=== PATIENT | male | born 1955 | race Caucasian/White ===

== ENCOUNTER 2022-10-19 09:08 | Outpatient (CLI) | payer BC, SELFPAY ==
--- NOTE | 2022-10-19 09:15 | MR_ITS ---
[address] [address] Phone:?[phone] Fax:?[phone] Referring Physician Information: Torey Moore M.D. [address] [facility] [address] Phone:?[phone] Fax:?[phone] Patient:Rony Schwartz D.O.B:?1955 Sex:?Male Phone:?[phone] [facility] MRN:?[id number] Exam Date:?10/19/2022 EXAM: MRI of the RIGHT SHOULDER, without contrast CLINICAL HISTORY: Right shoulder pain. Concern for rotator cuff tear. Unspecified injury of the right shoulder. COMPARISONS: Plain radiographs 10/12/2022. MRI 08/09/2021. TECHNICAL: MRI sequences of the right shoulder: Axials: PD, T2 Coronals: PD, STIR, T2 Sagittals: PD, T2 SEDATION: None CONTRAST: None FINDINGS: Bones: No fracture or suspicious bone marrow signal abnormality. Coracoacromial arch: Acromion: No os acromiale. Type I-II acromion. Acromiohumeral space: Narrowed in the setting of complete full-thickness tears of the supraspinatus and infraspinatus tendons. Coracohumeral space: The bony distance is unremarkable. Acromioclavicular joint: Mild degenerative changes. Coracoclavicular ligament: The coracoclavicular ligament is intact. Rotator cuff muscles/tendons: Supraspinatus and infraspinatus: Complete full-thickness tears of the supraspinatus and infraspinatus tendon insertions with proximal/medial tendon retraction to the level of the glenoid, moderate atrophy of the supraspinatus muscle, and moderate atrophy of the infraspinatus muscle, new compared to previous MRI 08/09/2021. Teres minor: The teres minor tendon and muscle are intact. Subscapularis: 2.2 cm in craniocaudad dimension full-thickness tear of the subscapularis tendon insertion with proximal/medial tendon retraction medial to the level of the glenoid and mild atrophy of the subscapularis muscle, new compared to previous MRI 08/09/2021. Labrum and glenohumeral joint: There is fraying of the superior, posterosuperior, and anteroinferior portions of the labrum. Small glenohumeral joint effusion. There is mild inferomedial humeral head osteophytosis. No convincing evidence of capsular edema or thickening although evaluation is suboptimal because of lack of joint distention. Proximal biceps tendon, long head and short heads: Rupture of the proximal long head of the biceps tendon with distal tendon retraction distal to the bicipital groove, new compared to previous MRI 08/09/2021. Bursae: Subacromial/subdeltoid: The presence of fluid is not expected given full- thickness rotator cuff tendon tearing. Subcoracoid: No convincing subcoracoid bursal thickening/bursitis. IMPRESSION: 1. Complete full-thickness tears of the supraspinatus and infraspinatus tendon insertions with proximal/medial tendon retraction to the level of the glenoid and moderate atrophy of the supraspinatus and infraspinatus muscles. 2. Rupture of the proximal long head of the biceps tendon with distal tendon retraction distal to the bicipital groove. 3. 2.2 cm in craniocaudad dimension full-thickness tear of the subscapularis tendon insertion with proximal/medial tendon retraction medial to the level of the glenoid. Mild atrophy of the subscapularis muscle. 4. Mild inferomedial humeral head osteophytosis. 5. Small glenohumeral joint effusion. RCB Electronically signed on 10/19/2022 9:43:00 PM by Jose Carr M.D.
== END 2022-10-19 09:09 | disposition home or self-care (01) ==
PROVIDERS: PCP Family Medicine; Visit Provider Orthopaedic Surgery
DX: M25.511 Pain in right shoulder (principal); S49.91XA Unspecified injury of right shoulder and upper arm, initial encounter; M75.101 Unspecified rotator cuff tear or rupture of right shoulder, not specified as traumatic; M25.711 Osteophyte, right shoulder; M25.411 Effusion, right shoulder
CPT/HCPCS: 73221

== ENCOUNTER 2022-11-05 06:02 | Day surgery (SDC) | payer BC, SELFPAY ==
[2022-11-05] VITALS (12 sets, daily range): BP systolic 116–149; BP diastolic 76–87; PULSE 64–757; RESP 16–161; TEMP 36.3–36.7; O2SAT 93–99; BMI 27.7
[2022-11-05] MEDS: SODIUM CHLORIDE 0.9 % (FLUSH) 10 ML SYRINGE IVF (06:49)
[2022-11-05] MEDS: LACTATED RINGERS 1000 ML 1,000 ML 100 ML IV ×2 (06:50→10:08)
--- NOTE | 2022-11-05 07:18 | W.PM.H&PU ---
History & Physical Update History & Physical Update H&P Reviewed and patient assessed: No changes noted
[2022-11-05] MEDS: MIDAZOLAM HCL 1 MG/ML inj IVP (07:20)
[2022-11-05] MEDS: fentaNYL 100 MCG/2 ML inj IVP (07:20)
--- NOTE | 2022-11-05 07:24 | SUR.PREOP ---
TIME?OUT:?716, right shoulder PT/RN/MDA?VERIFICATION?OF?SURGICAL?SITE,?PROCEDURE,?AND?CONSENT OBTAINED?PRIOR?TO?INVASIVE?PROCEDURE.
[2022-11-05] MEDS: CEFAZOLIN 2 GM INJ IVP (07:46)
--- NOTE | 2022-11-05 07:59 | P.NB_ITS ---
Nerve Block Nerve Block Time Seen by Provider: 07:15 Date Seen: 11/05/22 Type of block requested by surgeon for post-operative analgesia: supraclavicular Side: right Time out performed: Yes Verification of patient name: Yes Verification of date of : Yes Site marking: site marked Name of person performing procedure: denys Continuous monitoring Was continuous monitoring of O2 sat, B/P, cardiac cath technician, recorded every 15 minutes?: Yes Procedure Checklist: sterile prep, needles and gloves Ultrasound guided. Images saved: Yes Medications given in 5ml increments after negative aspiration: Ropivicaine %: 0.5 mL: 20 Needle gauge: 20 Decadron (mg): 10 Precedex (mcg): 25 Patient tolerated procedure well: Yes Block Charges Block Charge (with Pro Fee): Brachial Plexus Use of Ultrasound Machine for Block: Yes- US Guidance/pain block
[2022-11-05] MEDS: EPINEPHrine 1 MG in SODIUM CHLORIDE IRRIG SOLUTION 3,000 ML 3001 MG IRRIGATION ×23 (08:08→12:03)
[2022-11-05] MEDS: EPINEPHrine 1 MG in SODIUM CHLORIDE IRRIG SOLUTION 3,000 ML 9003 MG IRRIGATION (09:20)
--- NOTE | 2022-11-05 12:10 | W.ANESCHARGE ---
Anesthesia Charges Start Date/Time Anesthesia Start Date: 11/05/22 Anesthesia Start Time: 07:29 Stop Date/Time Anesthesia Stop Date: 11/05/22 Anesthesia Stop Time: 12:36
--- NOTE | 2022-11-05 12:18 | PM.ORPRC ---
Procedure Note Date of procedure: 11/05/22 Procedure: Date of procedure: 11/05/22 Procedure: PREOPERATIVE DIAGNOSES: 1. Right shoulder rotator massive cuff tear (subscapularis, supraspinatus, infraspinatus). 2. Right long head biceps tendon rupture POSTOPERATIVE DIAGNOSES: 1. Right shoulder rotator massive cuff tear (subscapularis, supraspinatus, infraspinatus). 2. Right long head biceps tendon rupture 3. Right shoulder subacromial bursitis 4. Right shoulder glenohumeral chondromalacia NAME OF OPERATION: 1. Right shoulder arthroscopic rotator cuff repair. 2. Right shoulder arthroscopic extensive debridement - glenohumeral joint, glenoid labrum, subacromial space 3. Right shoulder subacromial decompression 4. 22 Modifier due to increased technical difficulty of procedure secondary to massive, retracted rotator cuff tear with significant subacromial bursitis. SURGEON: Andre Moore MD MARKET REPORTER: Ayala Knox P.A.-C. An medical assistant internal medicine was critical for this case to aide in patient positioning, suture manipulation, arm positioning, instrument positioning, and closure. ANESTHESIA: General plus preoperative supraclavicular block. IMPLANTS: Arthrex 4.75 mm BioComposite knotless SwiveLock anchors x2, Arthrex 5.5 mm BioComposite knotless SwiveLock anchor x1, Arthrex 2.6 mm FiberTak anchor x1, 4.75 mm BioComposite SwiveLock anchors x3, ESTIMATED BLOOD LOSS: 25 mL COMPLICATIONS: None evident INDICATIONS: The patient is a pleasant, 67-year-old male with history of chronic right shoulder pain and weakness. Physical exam and imaging were consistent with a chronic appearing massive, full-thickness, retracted rotator cuff tear. Given these findings, recommendation was made for surgery consisting of left shoulder arthroscopic rotator cuff repair and subacromial decompression. FINDINGS: Exam under anesthesia revealed stable shoulder with good range of motion. The diagnostic arthroscopy revealed small areas of grade 3 chondromalacia in the central aspect of the glenoid and central aspect of the humeral head. There was chronic disruption of the long head of the biceps tendon, which was retracted out of the joint and was not visualized. Glenoid labrum was intact with mild diffuse fraying. There were full-thickness tears of the upper subscapularis, supraspinatus and infraspinatus, all of which were were retracted medially to the level of the glenoid. In the subacromial space, there was diffuse thickened bursal tissue. No loose bodies were identified within the pouch or subscapularis recess. PROCEDURE: After discussion of risks, benefits, and alternatives to surgery, informed consent was obtained. The surgical site was then marked and a supraclavicular nerve block was performed by anesthesia staff. Patient was then brought to the operating room placed in the supine position on the OR table. General anesthesia was obtained patient given Ancef preoperatively for prophylaxis. He was then rotated the beach chair position. Head was placed in a padded hogshead weigher and all bony prominences were well padded. Right shoulder and upper extremity were then prepped and draped in usual sterile fashion. Surgical time-out was performed confirming patient identity, surgical site, and surgical procedure. Glenohumeral joint was injected with 40 mL of normal saline. Portal sites were injected with 1% lidocaine with epinephrine. Posterior portal was established. Anterior portal was established after localization with spinal needle and a 7.0 mm cannula was placed here. Diagnostic arthroscopy was performed with findings as noted above. Attention was 1st directed to the stump of the biceps tendon, which was debrided using arthroscopic shaver. After debridement remnant labrum was confirmed to be stable. Attention was then directed to the subscapularis. The upper subscapularis had a full-thickness tear that was retracted medially to level of the glenoid. The footprint was debrided of soft tissue and lightly decorticated with a bone-cutting shaver. The subscapularis was noted to be scarred into surrounding soft tissues and soft tissue release was performed using combination of arthroscopic shaver and electrocautery, with care taken to stay lateral to the coracoid. A anterior superior lateral portal was established during this portion of procedure and a 2nd 7.0 mm cannula was placed here. A 70 degree scope was utilized for better visualization. Once the subscapularis was mobilized back to its footprint a 2.6 mm knotless FiberTak anchor was placed. Sutures were then shuttled through the not subscapularis tendon, and then were brought medially into a 4.75 mm SwiveLock anchor. 30 degree scope was again used and subacromial bursectomy was performed. There was extensive inflamed bursal tissue which took a prolonged time to debride up. After completion of subacromial bursectomy there was noted to be a large full-thickness tear of the supraspinatus and infraspinatus which was retracted medially to the level of the glenoid. Initially this cuff tissue was not easily mobilized well. Soft tissue releases were performed and cuff was subsequently able to be mobilized back to its footprint. At this point, three 4.75 mm knotless SwiveLock anchors were placed along the medial border of the footprint. One of these anchors pulled out and was replaced with a 5.5 mm knotless SwiveLock anchor. FiberLink sutures were then used to shuttle sutures through the rotator cuff tendon lateral to the musculotendinous junction. Once all 3 sets of sutures had been passed through the tendon, the knotless sutures were shuttled and tensioned to complete the medial row repair. Once the medial row repair had been completed, the lateral row repair was performed using two 4.75 mm SwiveLock anchors, each of which contained 1 FiberTape from the previously placed medial row anchors. Prior to securing the lateral row anchors, sutures were tensioned. Once the anchors had been inserted remnant sutures were cut and removed. Posteriorly, there was noted to be a dog ear in the cuff which was secured using the prior suture from the posterior lateral SwiveLock anchor. After this suture set was passed and tied, the remnant suture was cut and removed. Medial row knotless anchors were retentioned a final time, the remnant sutures were cut and removed. The rotator cuff was then thoroughly inspected noted to be anatomically fixed to its footprint. Arthroscopic instruments and cannulas were removed.. Portal sites were then closed with 3-0 nylon simple interrupted stitches and sterile dressing was applied. Arm was placed into an abduction sling. Patient was then rotated back into the supine position, woken from anesthesia, transferred to the PACU in stable condition. PLAN: 1. Discharge home on day of surgery. 2. Cryocuff/ice for pain and/or swelling. 3. Tylenol and oxycodone for pain as needed. 4. Abduction sling at all times except for ROM and showering. 5. Remove arm from sling 4-5 times daily for elbow range of motion and gentle pendulum exercises. 6. No shoulder forward elevation or abduction activities. 7. May remove dressings in 3 days. 8. Follow up in orthopedic clinic in 10-14 days wound check and suture removal. 9. Formal physical therapy beginning at 6 weeks postoperatively per the massive rotator cuff repair protocol.
== END 2022-11-05 14:39 | disposition home or self-care (01) ==
PROVIDERS: PCP Family Medicine; Visit Provider Orthopaedic Surgery
PROC: (CPT 23412; principal; 2022-11-05 07:30)
DX: M75.121 Complete rotator cuff tear or rupture of right shoulder, not specified as traumatic (principal); S46.111A Strain of muscle, fascia and tendon of long head of biceps, right arm, initial encounter; M75.51 Bursitis of right shoulder; M94.211 Chondromalacia, right shoulder; G89.18 Other acute postprocedural pain
CPT/HCPCS: 29827; 29823; 01630; 64415; 76942; C1713; J0171; J0330; J0690; J1100; J2250; J2371; J2405; J2704; J2795; J3010; J7120; L3670

== ENCOUNTER 2023-06-21 16:00 | Outpatient (RCR) | payer BC, SELFPAY ==
--- NOTE | 2022-12-17 17:36 | PT.OPEX ---
[facility] [place] Outpatient Eval PT [facility] Outpatient Eval Start: 12/17/22 15:34 Freq: Status: Active Protocol: Document 12/17/22 15:43 LIA (Rec: 12/17/22 17:34 LIA [id number]) E-signed By Handy Deras PT Physical Therapy Outpatient Evaluation Insurance Information Insurance Name Medicare B,Blue [employer] Medical Diagnosis Right massive rotator cuff tear with repair Treating Diagnosis Right shoulder pain Right shoulder weakness Decreased right shoulder ROM Referring MD Moore Subjective Subjective Pt. reports undergoing a right shoulder cuff repair 6 weeks ago (11/05/22) due to massive cuff tear involving supraspinatus, infraspinatus, and subscapularis. He also has a torn bicep but they didn't repair that. He initially hurt his shoulder in 2000 and lived with it over the years. He then took two falls last January completely tearing his cuff leading to recent surgery. Good health overall is noted. Pain Comments 0-1 Date of Last Physician Visit 12/16/22 Date of Surgery (If applicable) 11/05/22 Preferred Name Castillo Precautions Treatment Precautions/Contraindications PROM and AAROM only until week 10 Objective Other/Pertinent Objective Left shoulder AROM and strength is WNL Right shoulder PROM: flexion 110 deg; ER 25 degrees; abduction 65 degrees Right elbow, wrist AROM is WNL rounded shoulder posture Assessment Assessment/Impression Objectively, pt. demonstrates; normal left shoulder AROM and strength; mild rounded shoulders posture; normal right elbow, wrist and hand AROM; limited right shoulder PROM due to tightness and mild pain symptoms today within expected levels following surgery; right shoulder muscle atrophy; and hypertonus of right upper trap and scapular muscles. He would benefit from skilled therapy working on progressive ROM and eventually strengthening. Primary Functional Limitations lifting, reaching, overhead activities Plan of Care Rehabilitation Potential Excellent Physical Therapy Goals 1. Pt. will be indep. with HEP for self maintenance in 10 weeks. 2. Pt. will demonstrate improved shoulder ROM to WFL to allow progression to strengthening in 10 weeks. 3. Pt. will be able to raise arm overhead for ADL's without difficulty in 12 weeks. 4. Pt. will demonstrate functional right shoulder cuff strength in 12 weeks. Coordination/Communication With Referral Source Treatment Plan/Direct Interventions Joint Mobilization,Manual Therapy,Self-Care/Home Management,Therapeutic Exercises Frequency/Duration 2 times a week decreasing to weekly and then every other week for 10-12 weeks. Patient Will Be Discharged From Therapy Independent w/HEP, Independently Progressing Evaluation Billing Complexity Low Certification Information Initial Certification Date 12/17/22 Ending Certification Date 03/12/23 Provider Signature Shows Agreement With POC & Medical Necessity Physician Signature & Date Requested Please Sign/Date Here Physician Comment/Change : Physician NPI Number #
== END 2023-07-07 10:39 | disposition home or self-care (01) ==
PROVIDERS: PCP Family Medicine; Visit Provider Orthopaedic Surgery
DX: M75.121 Complete rotator cuff tear or rupture of right shoulder, not specified as traumatic (principal); Z51.89 Encounter for other specified aftercare
CPT/HCPCS: 97110; 97161

== ENCOUNTER 2023-08-12 07:30 | Outpatient (RCR) | payer BC, SELFPAY | END 2023-08-12 08:19 | disposition home or self-care (01) | PROVIDERS: PCP Family Medicine; Visit Provider Neurological Surgery | DX: M48.061 Spinal stenosis, lumbar region without neurogenic claudication (principal); Z51.89 Encounter for other specified aftercare | CPT/HCPCS: 97110; 97162 ==